=== PATIENT | male | born 1950 | race Caucasian/White ===

== ENCOUNTER 2021-12-28 07:56 | Outpatient (CLI) | payer MEDICARE, SELFPAY ==
[2021-12-28 13:07] LABS: Basophils Percent Auto 0.4 % (0.2-1.2); Eosinophils Percent Auto 0.6 % (0-4.4); Hematocrit 51.6 % (42.0-52.0); Hemoglobin 16.1 g/dL (14.0-18.0); Immature Granulocyte Absolute 0.01 K/mm3 (0.00-0.031); Immature Granulocyte Percent A 0.2 % (0-0.5); Lymphocytes Absolute Auto 1.65 K/mm3 (0.9-3.2); Lymphocytes Percent Auto 32.2 % (18.3-44.2); Mean Corpuscular HGB Conc 31.2 g/dl (32-36); Mean Corpuscular Volume 89.9 fl (80-100); Mean Platelet Volume 9.8 fl (7.4-10.4); Monocytes Absolute Auto 0.5 K/mm3 (0.1-0.6); Monocytes Percent Auto 10.5 % (2.6-8.5); Neutrophils Absolute Auto 2.9 K/mm3 (1.3-6.7); Neutrophils Percent Auto 56.1 % (45.5-73.1); Platelet Count Result 158 k/mm3 (150-375); Red Blood Count 5.74 M/mm3 (4.6-6.20); Red Cell Distribution Width 14.3 % (11.5-14.5); White Blood Count 5.1 K/mm3 (4.5-10.0)
[2021-12-28 13:16] LABS: Alanine Aminotransferase 51 U/L (6-50); Albumin Level 4.4 g/dL (3.5-5.1); Alkaline Phosphatase 68 U/L (38-126); Anion Gap 9 mmol/L (8-16); Aspartate Amino Transferase 37 U/L (17-59); Bilirubin,Total 0.7 mg/dL (0.2-1.3); Blood Urea Nitrogen 21 mg/dL (9-20); Calcium 9.1 mg/dL (8.4-10.2); Carbon Dioxide 29 mmol/L (22-30); Chloride 100 mmol/L (98-107); Cholesterol 142 mg/dL (0-200); Estimated Glomerular Filt Rate 59; Glucose 109 mg/dL (65-110); HDL Direct 56 mg/dL; Potassium 4.5 mmol/L (3.4-5.0); Sodium 138 mmol/L (137-145); Triglycerides 119 mg/dL (<150)
[2021-12-28 13:28] LABS: LDL Cholesterol Direct 59 mg/dL
[2021-12-28 13:42] LABS: Hemoglobin A1C 5.7 % (<5.7); Prostate Specific Antigen 1.5 ng/mL (< OR = 4.0)
== END 2021-12-28 07:57 | disposition home or self-care (01) ==
PROVIDERS: PCP Internal Medicine; Visit Provider Clinical Nurse Specialist
DX: E78.5 Hyperlipidemia, unspecified (principal); R73.9 Hyperglycemia, unspecified; Z12.5 Encounter for screening for malignant neoplasm of prostate
CPT/HCPCS: 36415; 80053; 80061; 83036; 84153; 85025; G0103

== ENCOUNTER 2022-12-13 08:13 | Outpatient (CLI) | payer MEDICARE, SELFPAY ==
[2022-12-13 13:02] LABS: Basophils Percent Auto 0.4 % (0.2-1.2); Eosinophils Percent Auto 0.4 % (0-4.4); Hemoglobin 16.5 g/dL (14.0-18.0); Immature Granulocyte Absolute 0.01 K/mm3 (0.00-0.031); Immature Granulocyte Percent A 0.2 % (0-0.5); Lymphocytes Absolute Auto 1.57 K/mm3 (0.9-3.2); Lymphocytes Percent Auto 29.1 % (18.3-44.2); Mean Corpuscular HGB Conc 31.7 g/dl (32-36); Mean Corpuscular Hemoglobin 28.6 pg (26-34); Mean Corpuscular Volume 90.3 fl (80-100); Mean Platelet Volume 10.2 fl (7.4-10.4); Monocytes Absolute Auto 0.5 K/mm3 (0.1-0.6); Neutrophils Absolute Auto 3.2 K/mm3 (1.3-6.7); Neutrophils Percent Auto 59.9 % (45.5-73.1); Platelet Count Result 154 k/mm3 (150-375); Red Blood Count 5.76 M/mm3 (4.6-6.20); Red Cell Distribution Width 14.1 % (11.5-14.5); White Blood Count 5.4 K/mm3 (4.5-10.0)
[2022-12-13 13:19] LABS: Alanine Aminotransferase 49 U/L (6-50); Albumin Level 4.4 g/dL (3.5-5.1); Alkaline Phosphatase 61 U/L (38-126); Anion Gap 5 mmol/L (8-16); Aspartate Amino Transferase 57 U/L (17-59); Bilirubin,Total 0.8 mg/dL (0.2-1.3); Blood Urea Nitrogen 17 mg/dL (9-20); Calcium 9.3 mg/dL (8.4-10.2); Carbon Dioxide 32 mmol/L (22-30); Chloride 102 mmol/L (98-107); Cholesterol 174 mg/dL (0-200); Estimated Glomerular Filt Rate > 60; Glucose 100 mg/dL (65-110); HDL Direct 74 mg/dL; Potassium 4.2 mmol/L (3.4-5.0); Sodium 139 mmol/L (137-145); Triglycerides 108 mg/dL (<150)
[2022-12-13 13:32] LABS: LDL Cholesterol Direct 71 mg/dL
[2022-12-13 13:48] LABS: Prostate Specific Antigen 1.3 ng/mL (< OR = 4.0)
== END 2022-12-13 08:14 | disposition home or self-care (01) ==
LOC: ANHGOSHLAB 08:15
PROVIDERS: PCP Internal Medicine; Visit Provider Clinical Nurse Specialist
DX: D75.1 Secondary polycythemia (principal); E78.5 Hyperlipidemia, unspecified; Z12.5 Encounter for screening for malignant neoplasm of prostate
CPT/HCPCS: 36415; 80053; 80061; 84153; 85025; G0103

== ENCOUNTER 2023-02-15 01:18 | Day surgery (SDC) | payer MEDICARE, SELFPAY ==
--- NOTE | 2023-02-08 08:20 | PC.NURSE ---
Report to the Outpatient Waiting Room, entrance under the green pavilion located off [facility], at time _0630 on date __02/15/23 . Planned Procedure Time: _0830 . Time changes happen often and if your time is changed the preop area will call you the afternoon before. - You and your visitor will be asked to self-screen and do not enter if you have any COVID symptoms. - A mask is optional within the hospital at this time. Patients may have clear liquids (water, carbonated beverages, clear teas, apple juice) until 3 hours prior to surgery with a maximum of 20 ounces. - No food from midnight until time of surgery - Infants may have breast milk until 4 hours before surgery, formula 6 hours prior to surgery. - Children will be allowed to drink immediately following surgery. If applicable, please bring a bottle or sippy cup to assist with drinking. Juice, water, soda, and popsicles are readily available. For infants on formula, please bring formula the day of surgery. Pacifiers are allowed. Take the following medications with a SIP of water the morning of surgery: __NONE DO NOT STOP ANY OF YOUR OTHER PRESCRIPTION MEDICATIONS PRIOR TO SURGERY ?EXCEPT THE FOLLOWING Medications to discontinue per physician __ALL VITAMINS AND SUPPLEMENTS 3 DAYS PRE OP.LAST DOSE 02/11/23 Please no make-up, nail romanian, hairspray, perfume, deodorant, or body powder the day of surgery. No jewelry (including any body piercings) or valuables the day of surgery, leave them at home. Please take a shower or bath the night before, or the morning of, surgery with an antibacterial soap. Wear comfortable, loose fitting clothing. Children are encouraged to wear pajamas. - Jewelry must be removed prior to entering the operating room. Rings and piercings that are not removed may be cut off. - The hospital will not accept responsibility for valuables. - Please leave all valuables, including medications, at home the day of surgery. If you are going home after surgery, a licensed grab driver must drive you home. - NO public transportation without another adult if you receive anesthesia. - We recommend that an adult stay with you for 24 hours following discharge. - We also recommend that you do not drive, make important decision, drink alcoholic beverages, or take any drugs that were not prescribed by your health care provider for at least 24 hours after your discharge time. For Pediatric surgeries, we recommend two adults accompany the child home. Follow any additional instructions given to you from your surgeon. If you or anyone in your household have experienced Covid symptoms in the past week, please notify your surgeon or the nurse liaison at the phone number below for possible testing. Telephone instructions given to __PATIENT and asked if any additional questions and then verbalized understanding. Patient advised to call surgeon office or pre surgery nurse liaison [phone] if any additional questions.
[2023-02-08 08:26] VITALS: BMI 28.8
[2023-02-15] VITALS (7 sets, daily range): BP systolic 126–139; BP diastolic 52–79; PULSE 79–97; RESP 14–19; TEMP 36.3–36.8; O2SAT 97–100
--- NOTE | 2023-02-15 07:43 | WPDANESEPPF ---
Anes - Initial Pre Proc Eval Procedure: Operation Date: 02/15/23 08:30 Proposed Procedures p Excision Right Posterior Lateral Neck Mass - Ced Hodge MD Date/Time: 02/15/23 07:43 Surgeon: Ced Hodge MD Pre Op Diagnosis: Right Neck Mass (cyst) Patient Data Age: 72 Gender: M Height: 1.73 m Weight: 86.2 kg Allergies Allergy/AdvReac Type Severity Reaction Status Date / Time No Known Allergies Allergy Verified 02/08/23 08:15 Home Medications Medication Instructions Recorded Confirmed Type fluticasone propionate 50 2 spray intranasal DAILY 09/28/19 02/08/23 History mcg/actuation nasal spray,suspension (Flonase Allergy Relief) omeprazole magnesium 20 mg 10 mg PO DAILY 09/28/19 02/08/23 History tablet,delayed release (Prilosec OTC) vit C 250 mg-vit E 200 unit-zinc 1 tablet PO BID 06/01/20 02/08/23 History 12.5 mg-copper 1 [id number] tablet (ICaps AREDS2 (copper citrate)) allopurinol 300 mg tablet 300 mg PO DAILY #90 tabs 12/27/22 02/08/23 Rx atorvastatin 20 mg tablet 20 mg PO DAILY #90 tabs 12/27/22 02/08/23 Rx cetirizine 10 mg tablet (Zyrtec) 10 mg PO DAILY 02/08/23 02/08/23 History Patient hx anesthesia problems: none Family hx anesthesia problems: none Results Review: All pre-operative results and documents have been reviewed as part of the pre-operative evaluation. [facility] Past Medical History Medical History Allergies GERD (gastroesophageal reflux disease) Gout HLD (hyperlipidemia) Hyperglycemia Macular degeneration Polycythemia Surgical History Surgical History History of hernia repair Hx of LASIK Family History Family History Father Diabetes mellitus Mother Diabetes mellitus Sibling Diabetes mellitus Family history of cardiovascular disease Other Heart disease Social History Social History Smoking status: Never smoker Alcohol intake: current Drinks per week: 14 Lack of Transportation: No Lack of Food: Never True Current Housing: I Have Housing Concerned About Future Housing: No Difficulty Paying Gas/Electric Bills: No Difficulty Paying for Meds: No Currently Unemployed: No Education: Bachelor's Degree Difficulty w/ Childcare or Family Care: No Living arrangements: with family Spiritual care concerns: No Anes - Eval Final PreProcedure Day of Procedure 02/15/23 07:43 Patient weight: normal Heart: regular rate and rhythm Lungs: clear to auscultation Airway: Mallampati scale class III Neurological: alert and oriented Last oral intake: >/= 8 hours ASA classification: II Emergent: no Anesthetic plan: proceed Anesthesia type and monitoring: general GIVS (may use LMA if needed for positioning) and standard monitoring Results Review: All pre-operative results and documents have been reviewed as part of the pre-operative evaluation. Informed Consent: The patient's anesthetic plan and its attendant risks and benefits were discussed with the patient/family/POA. Questions were solicited and answers provided to the satisfaction of the patient/family/POA.
[2023-02-15] MEDS: LACTATED RINGERS 1,000 ML 30 ML IV CONT (07:53)
--- NOTE | 2023-02-15 08:41 | WPDHPUPDATE1 ---
History and Physical Update Update Date/Time: 02/15/23 08:41 History and Physical has been reviewed, including an updated exam of the patient. There are NO changes in the patient's condition. Risks, benefits, and alternatives have been discussed and questions answered. Patient agrees to proceed with procedure.
[2023-02-15] MEDS: ceFAZolin 2 GM/D5W 50 ML 2 GM/50 ML BAG IVPB (08:45)
[2023-02-15] MEDS: LIDO 1%/EPINEPHRINE 1:100,000 20 ML VIAL INFILTRATE (09:14)
--- NOTE | 2023-02-15 09:34 | W.PM.PROC2 ---
Procedure Note - Detailed Date of Procedure 02/15/23 Pre-op Diagnosis Right Neck Mass (cyst) Post-op Diagnosis Other (Right posterior neck intramuscular lipomatous mass) Procedure Performed Excision right posterior lateral neck lipomatous mass. Surgeon Ced Hodge MD [employer] Anesthesia General Indications Patient is a 2-year-old gentleman who presents with a slowly enlarging subcutaneous mass on the right posterior lateral neck region. It is well circumscribed and not fixed. Is likely a cyst or lipoma. Presents now for excision. Findings The patient appeared to have a intramuscular well-circumscribed lipomatous mass measuring 2.5x2x1.5cm. Description of Procedure After informed consent was obtained patient brought to the operating room was placed in the left lateral decubitus position on the operating table after a induction of general LMA anesthesia. The area the right posterior lateral neck region was then prepped and draped usual sterile fashion. A time-out was then performed correctly identifying the patient as well as procedure to be performed verifying the site marking. He was given perioperative IV antibiotics. I 1st started by injecting 1% lidocaine mixed with 0.5% Marcaine around the subcutaneous mass for local anesthetic effect. I then made a oblique elliptical incision over the mass with a scalpel and dissected down through the dermis of the skin with a scalpel. Then with a combination of sharp scissor and electrocautery dissection I completed the dissected around the mass and after I to better visualize the mass it appeared to be more consistent with a lipomatous mass then a epidermal inclusion cyst. The deepest portion of the mass actually extended into the underlying muscle but it was easily dissected free the muscle fibers. This appeared to be also consistent with a intramuscular lipoma. Once the mass was completely excised out it was measured and it was 2.5cm in length by 2cm width by 1.5cm in depth. It was sent to pathology for examination. I irrigated out the incision sterile saline solution. Hemostasis was achieved utilizing the cautery. To reapproximate the fascial edges of the underlying muscle. This was then followed by a layer of interrupted 3-0 Vicryl sutures in the subcutaneous tissues. The skin edges were then approximated utilizing a running subcuticular 4-0 Monocryl suture. The incision was then cleaned and then skin glue was applied. The patient tolerated the procedure well no complications. All sponges, needles, and instrument counts were correct at the end procedure. EBL was __5_cc. The patient was awakened and taken to recovery in stable and satisfactory condition. Implants None Estimated Blood Loss 5 Drains No Packing No Pathology Yes (Right posterior lateral neck mass sent to pathology) Complications No immediate complications Condition Stable Disposition PACU [facility] Billing Surgery - Charge Forward: Surgery Billing
== END 2023-02-15 10:53 | disposition home or self-care (01) ==
PROVIDERS: PCP Internal Medicine; Visit Provider Surgery
PROC: (CPT 21554; principal; 2023-02-15 08:30)
DX: D17.0 Benign lipomatous neoplasm of skin and subcutaneous tissue of head, face and neck (principal); K21.9 Gastro-esophageal reflux disease without esophagitis; E78.5 Hyperlipidemia, unspecified; M10.9 Gout, unspecified; H35.30 Unspecified macular degeneration
CPT/HCPCS: 21554; 88304; 88342; A9270; J0690; J2405; J2704; J3010; J7120

== ENCOUNTER 2023-12-23 08:50 | Outpatient (CLI) | payer MEDICARE, SELFPAY ==
[2023-12-23 11:39] LABS: Basophils Percent Auto 0.5 % (0.2-1.2); Eosinophils Percent Auto 0.5 % (0-4.4); Hematocrit 51.2 % (42.0-52.0); Hemoglobin 16.5 g/dL (14.0-18.0); Immature Granulocyte Absolute 0.01 K/mm3 (0.00-0.031); Immature Granulocyte Percent A 0.2 % (0-0.5); Lymphocytes Absolute Auto 1.69 K/mm3 (0.9-3.2); Lymphocytes Percent Auto 30.7 % (18.3-44.2); Mean Corpuscular HGB Conc 32.2 g/dl (32-36); Mean Corpuscular Hemoglobin 28.6 pg (26-34); Mean Corpuscular Volume 88.7 fl (80-100); Mean Platelet Volume 9.8 fl (7.4-10.4); Monocytes Absolute Auto 0.6 K/mm3 (0.1-0.6); Monocytes Percent Auto 10.2 % (2.6-8.5); Neutrophils Absolute Auto 3.2 K/mm3 (1.3-6.7); Neutrophils Percent Auto 57.9 % (45.5-73.1); Platelet Count Result 142 k/mm3 (150-375); Red Blood Count 5.77 M/mm3 (4.6-6.20); Red Cell Distribution Width 13.9 % (11.5-14.5); White Blood Count 5.5 K/mm3 (4.5-10.0)
[2023-12-23 11:58] LABS: Alanine Aminotransferase 57 U/L (6-50); Albumin Level 4.7 g/dL (3.5-5.1); Alkaline Phosphatase 81 U/L (38-126); Anion Gap 10 mmol/L (4-12); Aspartate Amino Transferase 66 U/L (17-59); Bilirubin,Total 0.9 mg/dL (0.2-1.3); Blood Urea Nitrogen 22 mg/dL (9-20); Calcium 9.2 mg/dL (8.4-10.2); Carbon Dioxide 28 mmol/L (22-30); Chloride 100 mmol/L (98-107); Cholesterol 176 mg/dL (0-200); Estimated Glomerular Filt Rate > 60; Glucose 102 mg/dL (65-110); HDL Direct 66 mg/dL; Potassium 4.1 mmol/L (3.4-5.0); Sodium 138 mmol/L (137-145); Triglycerides 125 mg/dL (<150)
[2023-12-23 12:09] LABS: LDL Cholesterol Direct 73 mg/dL
[2023-12-23 12:23] LABS: Prostate Specific Antigen 1.8 ng/mL (< OR = 4.0)
== END 2023-12-23 08:51 | disposition home or self-care (01) ==
PROVIDERS: PCP Internal Medicine; Visit Provider Clinical Nurse Specialist
DX: Z12.5 Encounter for screening for malignant neoplasm of prostate (principal); D75.1 Secondary polycythemia; E78.5 Hyperlipidemia, unspecified; H35.30 Unspecified macular degeneration; R73.9 Hyperglycemia, unspecified; Z13.29 Encounter for screening for other suspected endocrine disorder
CPT/HCPCS: 36415; 80053; 80061; 83036; 84153; 85025; G0103

== ENCOUNTER 2023-12-24 01:54 | Day surgery (SDC) | payer MEDICARE, SELFPAY ==
[2023-12-02 12:33] VITALS: BMI 27.4
[2023-12-24 06:43] VITALS: BP 140/68; PULSE 67; RESP 18; TEMP 36.1; O2SAT 98
[2023-12-24] MEDS: LACTATED RINGERS 1,000 ML 150 ML IV CONT (06:50)
--- NOTE | 2023-12-24 06:53 | SUR.PREOP ---
Preop screening showing patient has DNR paperwork. Patient did not bring in paperwork for procedure today. Discussed with him code status, etc. Patient wishes to be full code.
--- NOTE | 2023-12-24 07:43 | WPDANESEPPF ---
Anes - Initial Pre Proc Eval Procedure: Operation Date: 12/24/23 08:00 Proposed Procedures p Colonoscopy - Reza Gilman MD Date/Time: 12/24/23 07:43 Surgeon: Reza Gilman MD Pre Op Diagnosis: Personal hx. colon polyps Patient Data Age: 73 Gender: M Height: 1.73 m Weight: 85.9 kg Last Vital Signs Temp 36.1 C L 12/24/23 06:43 Pulse 67 12/24/23 06:43 Resp 18 12/24/23 06:43 BP 140/68 12/24/23 06:43 Pulse Ox 98 12/24/23 06:43 O2 Del Method Room Air 12/24/23 06:43 Allergies Allergy/AdvReac Type Severity Reaction Status Date / Time No Known Allergies Allergy Verified 12/24/23 06:42 Home Medications Medication Instructions Recorded Confirmed Type fluticasone propionate 50 2 spray intranasal DAILY 09/28/19 12/24/23 History mcg/actuation nasal spray,suspension (Flonase Allergy Relief) omeprazole magnesium 20 mg 10 mg PO DAILY 09/28/19 12/24/23 History tablet,delayed release (Prilosec OTC) vit C 250 mg-vit E 200 unit-zinc 1 tablet PO BID 06/01/20 12/24/23 History 12.5 mg-copper 1 um-kzh-purccy tablet (ICaps AREDS2 (copper citrate)) cetirizine 10 mg tablet (Zyrtec) 10 mg PO DAILY 02/08/23 12/24/23 History allopurinol 300 mg tablet 300 mg PO DAILY #90 tabs 12/16/23 12/24/23 Rx atorvastatin 20 mg tablet 20 mg PO DAILY #90 tabs 12/17/23 12/24/23 Rx Patient hx anesthesia problems: none Family hx anesthesia problems: none Results Review: All pre-operative results and documents have been reviewed as part of the pre-operative evaluation. [facility] Past Medical History Medical History Allergies GERD (gastroesophageal reflux disease) Gout HLD (hyperlipidemia) Hyperglycemia Macular degeneration Polycythemia Surgical History Surgical History History of hernia repair Hx of LASIK Family History Family History Father Diabetes mellitus Mother Diabetes mellitus Sibling Diabetes mellitus Family history of cardiovascular disease Other Heart disease Social History Social History Smoking status: Never smoker Alcohol intake: current Drinks per week: 14 Alcohol use details: 2 GLASSES WINE DAILY Substance use: never Substance use type: does not use Lack of Transportation: No Lack of Food: Never True Current Housing: I Have Housing Concerned About Future Housing: No Difficulty Paying Gas/Electric Bills: No Difficulty Paying for Meds: No Currently Unemployed: No Education: Bachelor's Degree Difficulty w/ Childcare or Family Care: No Living arrangements: with family Spiritual care concerns: No Anes - Eval Final PreProcedure Day of Procedure 12/24/23 07:43 Patient weight: overweight Heart: regular rate and rhythm Lungs: clear to auscultation Airway: Mallampati scale class II Neurological: alert and oriented Last oral intake: >/= 8 hours ASA classification: III Emergent: no Anesthetic plan: proceed Anesthesia type and monitoring: general GIVS and standard monitoring Results Review: All pre-operative results and documents have been reviewed as part of the pre-operative evaluation. Informed Consent: The patient's anesthetic plan and its attendant risks and benefits were discussed with the patient/family/POA. Questions were solicited and answers provided to the satisfaction of the patient/family/POA.
--- NOTE | 2023-12-24 07:51 | PM.HPGS ---
History of Present Illness History of Present Illness Consent: Risks, benefits, and alternatives have been discussed and questions answered. Patient agrees to proceed with procedure. Chief complaint: Personal hx. colon polyps Narrative: Paul Lewis Jr. is a 73 year old male with last colonoscopy about 8 years ago without polyps but he did in previous one. Review of Systems Review of Systems: All systems reviewed & are unremarkable except as noted in HPI and below PMFSH Past Medical History Medical History Allergies GERD (gastroesophageal reflux disease) Gout HLD (hyperlipidemia) Hyperglycemia Macular degeneration Polycythemia Surgical History Surgical History History of hernia repair Hx of LASIK Family History Family History Father Diabetes mellitus Mother Diabetes mellitus Sibling Diabetes mellitus Family history of cardiovascular disease Other Heart disease Social History Social History Smoking status: Never smoker Alcohol intake: current Drinks per week: 14 Alcohol use details: 2 GLASSES WINE DAILY Substance use: never Substance use type: does not use Lack of Transportation: No Lack of Food: Never True Current Housing: I Have Housing Concerned About Future Housing: No Difficulty Paying Gas/Electric Bills: No Difficulty Paying for Meds: No Currently Unemployed: No Education: Bachelor's Degree Difficulty w/ Childcare or Family Care: No Living arrangements: with family Spiritual care concerns: No Meds Home Medications and Allergies Home Medications Medication Instructions Recorded Confirmed Type fluticasone propionate 50 2 spray intranasal DAILY 09/28/19 12/24/23 History mcg/actuation nasal spray,suspension (Flonase Allergy Relief) omeprazole magnesium 20 mg 10 mg PO DAILY 09/28/19 12/24/23 History tablet,delayed release (Prilosec OTC) vit C 250 mg-vit E 200 unit-zinc 1 tablet PO BID 06/01/20 12/24/23 History 12.5 mg-copper 1 [id number]-vvamjs tablet (ICaps AREDS2 (copper citrate)) cetirizine 10 mg tablet (Zyrtec) 10 mg PO DAILY 02/08/23 12/24/23 History allopurinol 300 mg tablet 300 mg PO DAILY #90 tabs 12/16/23 12/24/23 Rx atorvastatin 20 mg tablet 20 mg PO DAILY #90 tabs 12/17/23 12/24/23 Rx Allergies Allergy/AdvReac Type Severity Reaction Status Date / Time No Known Allergies Allergy Verified 12/24/23 06:42 Vital Signs Vital Signs - 24 hr 12/24/23 06:43 Temperature 97.0 F L Pulse Rate 67 Respiratory Rate 18 Blood Pressure 140/68 Pulse Oximetry 98 Oxygen Delivery Room Air Exam Const: General: comfortable and no acute distress HENMT: Face/Nose/Sinus: Normal nares present Eyes: General: appearance normal, both eyes and all related structures Neck: Neck: no JVD Resp: Auscultation: clear to auscultation bilaterally Cardio: Rate: regular rate Rhythm: regular rhythm GI: Inspection: non-distended GI Palp: Yes Soft to palpation Skin: General skin exam: normal color Neuro: General: gait normal Speech: normal speech Extrem: General: normal to inspection Psych: Mental Status: mental status grossly normal Assessment and Plan Assessment and plan (1) History of colonic polyps: Code(s): Z86.010 - Personal history of colonic polyps Status: Acute Assessment and Plan: colonoscopy
[2023-12-24 08:09] VITALS: BP 111/64; PULSE 57; RESP 20; O2SAT 97
[2023-12-24 08:19] VITALS: BP 115/63; PULSE 52; RESP 21; O2SAT 98
[2023-12-24 08:29] VITALS: BP 129/69; PULSE 51; RESP 18; O2SAT 100
== END 2023-12-24 08:33 | disposition home or self-care (01) ==
PROVIDERS: PCP Internal Medicine; Visit Provider Internal Medicine Gastroenterology
PROC: 0DJD8ZZ Inspection of Lower Intestinal Tract, Via Natural or Artificial Opening Endoscopic (ICD-10-PCS; CPT 45378; principal; 2023-12-24 08:00)
DX: Z12.11 Encounter for screening for malignant neoplasm of colon (principal); D12.2 Benign neoplasm of ascending colon; K64.8 Other hemorrhoids; K57.30 Diverticulosis of large intestine without perforation or abscess without bleeding; K21.9 Gastro-esophageal reflux disease without esophagitis; E78.5 Hyperlipidemia, unspecified; R73.9 Hyperglycemia, unspecified; H35.30 Unspecified macular degeneration; D75.1 Secondary polycythemia; Z98.890 Other specified postprocedural states; Z86.010 Personal history of colon polyps; Z82.49 Family history of ischemic heart disease and other diseases of the circulatory system
CPT/HCPCS: 45385; 88305; J2704; J7120

== ENCOUNTER 2024-03-03 11:32 | Outpatient (CLI) | payer MEDICARE, SELFPAY ==
[2024-03-03 19:22] LABS: Basophils Percent Auto 0.6 % (0.2-1.2); Eosinophils Percent Auto 0.4 % (0-4.4); Hematocrit 50.2 % (42.0-52.0); Hemoglobin 16.1 g/dL (14.0-18.0); Immature Granulocyte Absolute 0.01 K/mm3 (0.00-0.031); Immature Granulocyte Percent A 0.1 % (0-0.5); Lymphocytes Absolute Auto 1.79 K/mm3 (0.9-3.2); Lymphocytes Percent Auto 25.3 % (18.3-44.2); Mean Corpuscular HGB Conc 32.1 g/dl (32-36); Mean Corpuscular Hemoglobin 28.5 pg (26-34); Mean Platelet Volume 10.1 fl (7.4-10.4); Monocytes Absolute Auto 0.7 K/mm3 (0.1-0.6); Monocytes Percent Auto 9.3 % (2.6-8.5); Neutrophils Absolute Auto 4.6 K/mm3 (1.3-6.7); Neutrophils Percent Auto 64.3 % (45.5-73.1); Platelet Count Result 170 k/mm3 (150-375); Red Blood Count 5.64 M/mm3 (4.6-6.20); Red Cell Distribution Width 13.5 % (11.5-14.5); White Blood Count 7.1 K/mm3 (4.5-10.0)
[2024-03-03 19:36] LABS: Alanine Aminotransferase 52 U/L (6-50); Albumin Level 4.2 g/dL (3.5-5.1); Alkaline Phosphatase 81 U/L (38-126); Anion Gap 9 mmol/L (4-12); Aspartate Amino Transferase 47 U/L (17-59); Bilirubin,Total 0.8 mg/dL (0.2-1.3); Blood Urea Nitrogen 27 mg/dL (9-20); Calcium 9.6 mg/dL (8.4-10.2); Carbon Dioxide 27 mmol/L (22-30); Chloride 103 mmol/L (98-107); Estimated Glomerular Filt Rate > 60; Glucose 107 mg/dL (65-110); Potassium 4.6 mmol/L (3.4-5.0); Sodium 139 mmol/L (137-145)
== END 2024-03-03 11:33 | disposition home or self-care (01) ==
LOC: ANHGOSHLAB 11:34
PROVIDERS: PCP Internal Medicine; Visit Provider Clinical Nurse Specialist
DX: H35.30 Unspecified macular degeneration (principal); R74.01 Elevation of levels of liver transaminase levels; D69.6 Thrombocytopenia, unspecified
CPT/HCPCS: 36415; 80053; 85025

== ENCOUNTER 2024-12-28 08:17 | Outpatient (CLI) | payer MEDICARE, SELFPAY ==
[2024-12-28 13:00] LABS: Hematocrit 50.0 % (42.0-52.0); Hemoglobin 16.0 g/dL (14.0-18.0); Immature Granulocyte Percent A 0.2 % (0-0.5); Lymphocytes Absolute Auto 1.79 K/mm3 (0.9-3.2); Mean Corpuscular HGB Conc 32.0 g/dl (32-36); Mean Corpuscular Hemoglobin 28.2 pg (26-34); Mean Corpuscular Volume 88.0 fl (80-100); Nucleated Red Blood Cells Absolute Auto 0.000 K/mm3 (0.0-0.012); Nucleated Red Blood Cells Perc 0.0 % (0.0-0.2); Platelet Count Result 148 k/mm3 (150-375); Red Blood Count 5.68 M/mm3 (4.6-6.20); White Blood Count 5.4 K/mm3 (4.5-10.0)
[2024-12-28 13:21] LABS: Alanine Aminotransferase 37 U/L (6-50); Albumin Level 4.4 g/dL (3.5-5.1); Alkaline Phosphatase 68 U/L (38-126); Anion Gap 8 mmol/L (4-12); Aspartate Amino Transferase 46 U/L (17-59); Bilirubin,Total 0.7 mg/dL (0.2-1.3); Blood Urea Nitrogen 18 mg/dL (9-20); Calcium 9.2 mg/dL (8.4-10.2); Carbon Dioxide 28 mmol/L (22-30); Chloride 103 mmol/L (98-107); Cholesterol 154 mg/dL (0-200); Estimated Glomerular Filt Rate > 60; Glucose 107 mg/dL (65-110); HDL Direct 53 mg/dL; Potassium 3.9 mmol/L (3.4-5.0); Sodium 139 mmol/L (137-145); Total Protein 6.9 g/dL (6.3-8.2); Triglycerides 200 mg/dL (<150)
[2024-12-28 13:56] LABS: Prostate Specific Antigen 1.6 ng/mL (< OR = 4.0)
[2024-12-28 14:34] LABS: Hemoglobin A1C 6.0 % (<5.7)
== END 2024-12-28 08:18 | disposition home or self-care (01) ==
LOC: ANHGOSHLAB 08:18
PROVIDERS: PCP Internal Medicine; Visit Provider Clinical Nurse Specialist
DX: D75.1 Secondary polycythemia (principal); R73.01 Impaired fasting glucose; E78.5 Hyperlipidemia, unspecified; D69.6 Thrombocytopenia, unspecified; Z13.29 Encounter for screening for other suspected endocrine disorder; Z12.5 Encounter for screening for malignant neoplasm of prostate
CPT/HCPCS: 36415; 80053; 80061; 83036; 84153; 85025; G0103